=== PATIENT | female | born 1995 | race Caucasian/White ===

== ENCOUNTER → 2017-06-25 | Emergency (ER) | payer MEDICAID ==
[~2017-06-25] VITALS: Ht 160 cm; Wt 77.2 kg
[~2017-06-25] MED LIST: AMOX-422 PO; CYCL-1 PO; HYDR-3965 PO; IBUP-1984 PO; PENI500T2 PO; PRED20TA PO
[2017-06-25 16:50] VITALS: BP 109/68
== END | disposition home or self-care (01) ==
LOC: ER 13:00
DX: J32.9 Chronic sinusitis, unspecified (principal); M54.9 Dorsalgia, unspecified
CPT/HCPCS: 87502; 87503; 99284

== ENCOUNTER 2018-03-25 11:35 | Emergency (ER) | payer MEDICAID ==
[~2018-03-25] VITALS: Ht 160 cm; Wt 72.4 kg
[~2018-03-25 11:35] MED LIST changes: -AMOX-422 PO
[2018-03-25 11:40] VITALS: BP 241/187
== END 2018-03-25 12:45 | disposition home or self-care (01) ==
LOC: ER 11:35
DX: S51.811A Laceration without foreign body of right forearm, initial encounter (principal); F41.1 Generalized anxiety disorder; Z79.899 Other long term (current) drug therapy; W22.01XA Walked into wall, initial encounter; Y93.89 Activity, other specified; Y92.89 Other specified places as the place of occurrence of the external cause; Y99.8 Other external cause status
CPT/HCPCS: 12001; 99283

== ENCOUNTER 2018-04-08 01:10 | Emergency (ER) | payer MEDICAID ==
[~2018-04-08] VITALS: Ht 160 cm; Wt 72.0 kg
[~2018-04-08 01:10] MED LIST changes: +BACDS PO
[2018-04-08] MEDS ORDERED: CEPH-572 PO (01:29)
[2018-04-08] MEDS ORDERED: SULF1TAB49 PO (01:29)
[2018-04-08 01:30] VITALS: BP 112/74
== END 2018-04-08 01:39 | disposition home or self-care (01) ==
LOC: ER 01:10
DX: L03.113 Cellulitis of right upper limb (principal); Z79.2 Long term (current) use of antibiotics; Z79.899 Other long term (current) drug therapy
CPT/HCPCS: 87070; 87077; 87186; 99284

== ENCOUNTER 2018-12-05 11:11 | Emergency (ER) | payer MEDICAID ==
[~2018-12-05] VITALS: Ht 160 cm; Wt 78.1 kg
[~2018-12-05 11:11] MED LIST changes: -BACDS PO
--- NOTE | 2018-12-05 11:22 | NUR ---
NAYANA Palmer in triage to visualize pt.
[2018-12-05] MEDS ORDERED: normal saline 1000ML IV soln IVB ONE (11:25)
[2018-12-05 11:53] LABS: BASOPHILS % (AUTO) 0.2 % (0-1); EOSINOPHILS # (AUTO) 0.2 X10'3 (0-0.9); EOSINOPHILS % (AUTO) 2.2 % (0-6); HEMATOCRIT 39.8 % (35.0-45.0); HEMOGLOBIN 13.2 g/dl (12.0-16.0); LYMPHOCYTES # (AUTO) 1.6 X10'3 (1.1-4.8); LYMPHOCYTES % (AUTO) 18.9 % (21-51); MEAN CORPUSCULAR HEMOGLOBIN 28.6 PG (27.0-31.0); MEAN CORPUSCULAR HGB CONC 33.1 g/dL (33.0-36.5); MEAN CORPUSCULAR VOLUME 86.3 FL (78-98); MEAN PLATELET VOLUME 8.7 FL (7.4-10.4); MONOCYTES # (AUTO) 0.6 X10'3 (0-0.9); MONOCYTES % (AUTO) 6.6 % (2-12); NEUTROPHILS # (AUTO) 6.1 X10'3 (1.8-7.7); NEUTROPHILS % (AUTO) 72.1 % (42-75); PLATELET COUNT 251 X10'3 (140-440); RED BLOOD COUNT 4.62 X10'6 (4.20-5.60); RED CELL DISTRIBUTION WIDTH 14.1 % (11.5-14.5); WHITE BLOOD COUNT 8.5 X10'3 (4.5-11.0)
--- NOTE | 2018-12-05 12:01 | NUR ---
pt up to the bathroom at this time,denies dizziness.
[2018-12-05 12:04] LABS: ALBUMIN 3.7 G/DL (3.4-5.0); ANION GAP 8 (8-16); BILIRUBIN,TOTAL 0.6 MG/DL (0.1-1.0); BLOOD UREA NITROGEN 11 MG/DL (7-18); BUN/CREATININE RATIO 15.3 (6.6-38.0); CALCIUM 9.4 MG/DL (8.5-10.1); CHLORIDE 106 MMOL/L (99-107); CREATININE 0.72 MG/DL (0.40-0.90); GLUCOSE 111 MG/DL (70-104); POTASSIUM 3.3 MMOL/L (3.5-5.1); SODIUM 140 MMOL/L (135-145); TOTAL CARBON DIOXIDE 25.8 MMOL/L (24-32); TOTAL PROTEIN 7.5 G/DL (6.4-8.2); eGFR > 90 ML/MIN
[2018-12-05 12:05] LABS: ALANINE AMINOTRANSFERASE 18 U/L (12-78); ALKALINE PHOSPHATASE 60 IU/L (46-116); ASPARTATE AMINO TRANSFERASE 10 U/L (10-37)
[2018-12-05] MEDS ORDERED: potassium Cl 20 mEq SR tablet PO STA (12:11)
[2018-12-05 12:17] LABS: CLARITY,URINE CLOUDY (Clear); COLOR,URINE YELLOW (Yellow); GLUCOSE, URINE NEGATIVE (Neg); KETONES,URINE TRACE mg/dl (Neg); LEUKOCYTE ESTERASE ,URINE NEGATIVE (Neg); NITRITES, URINE NEGATIVE (Neg); OCCULT BLOOD,URINE TRACE-INTACT (Neg); PROTEIN,URINE TRACE mg/dl (Neg); UROBILINOGEN,URINE 0.2 E.U/dL (0.2-1.0)
[2018-12-05 12:18] LABS: URINE HCG NEGATIVE (NEG)
[2018-12-05 12:20] LABS: UA COLLECTION TYPE CLN CATCH MIDSTREAM
[2018-12-05 12:23] LABS: MUCUS STRANDS MODERATE /LPF (Neg); SQUAMOUS EPITHELIAL CELL,UR MANY /LPF (FEW)
[2018-12-05 12:25] LABS: BACTERIA,URINE 2+ /HPF (Neg)
[2018-12-05 13:11] VITALS: BP 122/53
--- NOTE | 2018-12-05 13:11 | NUR ---
piv dc'd priot to discharge.
== END 2018-12-05 12:48 | disposition home or self-care (01) ==
LOC: ER 11:23
DX: R55 Syncope and collapse (principal); E87.6 Hypokalemia; E86.0 Dehydration; R10.84 Generalized abdominal pain; Z79.899 Other long term (current) drug therapy
CPT/HCPCS: 36415; 71045; 80053; 81001; 81025; 82948; 85025; 93005; 96360; 99284; J7030

== ENCOUNTER 2018-12-07 15:32 | Emergency (ER) | payer MEDICAID ==
[~2018-12-07] VITALS: Ht 160 cm; Wt 75.0 kg
[2018-12-07 15:37] VITALS: BP 132/96
[2018-12-07 16:28] LABS: BASOPHILS % (AUTO) 0.3 % (0-1); EOSINOPHILS # (AUTO) 0.3 X10'3 (0-0.9); EOSINOPHILS % (AUTO) 2.8 % (0-6); HEMATOCRIT 38.2 % (35.0-45.0); HEMOGLOBIN 12.8 g/dl (12.0-16.0); LYMPHOCYTES % (AUTO) 31.6 % (21-51); MEAN CORPUSCULAR HEMOGLOBIN 28.8 PG (27.0-31.0); MEAN CORPUSCULAR HGB CONC 33.5 g/dL (33.0-36.5); MEAN CORPUSCULAR VOLUME 85.9 FL (78-98); MEAN PLATELET VOLUME 8.8 FL (7.4-10.4); MONOCYTES # (AUTO) 0.6 X10'3 (0-0.9); MONOCYTES % (AUTO) 6.3 % (2-12); NEUTROPHILS # (AUTO) 5.7 X10'3 (1.8-7.7); PLATELET COUNT 280 X10'3 (140-440); RED BLOOD COUNT 4.44 X10'6 (4.20-5.60); RED CELL DISTRIBUTION WIDTH 14.2 % (11.5-14.5); WHITE BLOOD COUNT 9.6 X10'3 (4.5-11.0)
[2018-12-07 16:40] LABS: ALANINE AMINOTRANSFERASE 19 U/L (12-78); ALBUMIN 3.5 G/DL (3.4-5.0); ALBUMIN/GLOBULIN RATIO 0.9 (1.1-1.5); ALKALINE PHOSPHATASE 60 IU/L (46-116); ANION GAP 6 (8-16); ASPARTATE AMINO TRANSFERASE 10 U/L (10-37); BILIRUBIN,TOTAL 0.3 MG/DL (0.1-1.0); BLOOD UREA NITROGEN 9 MG/DL (7-18); BUN/CREATININE RATIO 12.9 (6.6-38.0); CALCIUM 8.8 MG/DL (8.5-10.1); CHLORIDE 108 MMOL/L (99-107); GLUCOSE 89 MG/DL (70-104); POTASSIUM 3.5 MMOL/L (3.5-5.1); SODIUM 142 MMOL/L (135-145); TOTAL CARBON DIOXIDE 28.5 MMOL/L (24-32); TOTAL PROTEIN 7.2 G/DL (6.4-8.2); eGFR > 90 ML/MIN
[2018-12-07 16:42] LABS: CLARITY,URINE SLIGHTLY CLOUDY (Clear); COLOR,URINE YELLOW (Yellow); GLUCOSE, URINE NEGATIVE (Neg); KETONES,URINE NEGATIVE (Neg); LEUKOCYTE ESTERASE ,URINE NEGATIVE (Neg); NITRITES, URINE NEGATIVE (Neg); OCCULT BLOOD,URINE MODERATE (Neg); PROTEIN,URINE NEGATIVE (Neg); URINE HCG NEGATIVE (NEG); UROBILINOGEN,URINE 0.2 E.U/dL (0.2-1.0)
[2018-12-07 16:44] LABS: UA COLLECTION TYPE CLN CATCH MIDSTREAM
[2018-12-07 16:47] LABS: MUCUS STRANDS MANY /LPF (Neg); SQUAMOUS EPITHELIAL CELL,UR MANY /LPF (FEW)
[2018-12-07 16:49] LABS: BACTERIA,URINE 1+ /HPF (Neg); RBC,URINE 0-2 /HPF (0-2); WBC,URINE 0-4 /HPF (0-4)
[2018-12-07 17:04] LABS: D-DIMER 0.62 MG/L FEU (0-0.50)
[2018-12-07] MEDS ORDERED: iohexol 350MG/ML 100ml bottle IV ONE (17:36)
== END 2018-12-07 18:57 | disposition home or self-care (01) ==
LOC: ER 15:33
DX: R10.31 Right lower quadrant pain (principal); M54.9 Dorsalgia, unspecified; R55 Syncope and collapse; R06.02 Shortness of breath; F10.99 Alcohol use, unspecified with unspecified alcohol-induced disorder; Z79.899 Other long term (current) drug therapy; Y90.9 Presence of alcohol in blood, level not specified
CPT/HCPCS: 36415; 71275; 76830; 76856; 80053; 81001; 81025; 85025; 85379; 99284; Q9967

== ENCOUNTER 2019-11-24 09:33 | Emergency (ER) | payer SELFPAY ==
[~2019-11-24] VITALS: Ht 160 cm; Wt 79.5 kg
[2019-11-24 11:27] VITALS: BP 128/70
== END 2019-11-24 11:09 | disposition home or self-care (01) ==
LOC: ER 09:33
DX: M79.672 Pain in left foot (principal); M25.572 Pain in left ankle and joints of left foot; Z72.89 Other problems related to lifestyle; Z79.2 Long term (current) use of antibiotics; Z79.899 Other long term (current) drug therapy
CPT/HCPCS: 73610; 73630; 99284